=== PATIENT | female | born 1955 | race Caucasian/White ===

== ENCOUNTER → 2024-04-08 09:34 | Outpatient (REF) | payer MEDICARE, BC, SELFPAY | LOC: HWRAD 09:34 | PROVIDERS: ATTENDING PHYSICIAN Obstetrics & Gynecology Gynecology; FAMILY PHYSICIAN Internal Medicine | DX: Z12.31 Encounter for screening mammogram for malignant neoplasm of breast (principal); N95.0 Postmenopausal bleeding | CPT/HCPCS: 76830; 76856; 77063; 77067 ==

== ENCOUNTER 2025-01-15 22:22 | Inpatient (IN) | payer MEDICARE, BC, SELFPAY ==
[2025-01-15] VITALS (12 sets, daily range): BP systolic 159–218; BP diastolic 74–108
--- NOTE | 2025-01-15 19:56 | CON.NEURO ---
Consultation
Order
Date of Consultation: 01/15/25
Requesting Provider:
Reason for Consult: Stroke alert stroke alert
Called in: 19:32
Neurology Consultation Note.
HPI: This is a 69-year-old right-handed 'very anti-medicine'woman who presented to [facility] on with diplopia. According to the patient she developed an acute painless binocular vertical diplopia at
ER VS: 183/100, 79, 13, afebrile
PDMP:Alprazolam 1 Mg 120 tablets filled in on 01/01/2025, 11/24/2024, Phenobarbital 60 Mg 60 tablets filled in on 11/12/2024, 12/14/2024
CT head wo contrast-mild subcortical, deep, and periventricular white matter low-attenuation, compatible with changes of chronic small vessel ischemic disease
PMH: RRMS(declined therapy), history of right optic neuritis, MGUS?, GERD, IBS, XANDER, autonomic dysfunction, h/o ninth rib, left T12 and L1 transverse processes.
PSH: Bone and lymph node biopsy
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
FH: Mother�TIAs, strokes
All: Iodine, lidocaine, Motrin, prednisone, Compazine, tetracycline, epinephrine, codeine
ROS: Constitutional: Negative. Negative for chills, fever and unexpected weight change.
HENT: Negative for ear pain, hearing loss, tinnitus and trouble swallowing.
Eyes: Negative. Negative for photophobia, pain and visual disturbance.
Respiratory: Negative for cough, choking and shortness of breath.
Cardiovascular: Negative for chest pain, palpitations and leg swelling.
Gastrointestinal: Negative for abdominal pain and vomiting.
Endocrine: Negative. Negative for cold intolerance.
Genitourinary: Positive for urinary urgency and frequency
Musculoskeletal: Negative for back pain, gait problem, neck pain and neck stiffness.
Skin: Negative for rash.
Allergic/Immunologic: Negative. Negative for immunocompromised state.
Neurological: Positive for diplopia, chronic vertigo, imbalance
Psychiatric/Behavioral: Negative for behavioral problems, confusion and hallucinations.
NIH Stroke Scale
1A Level of Consciousness: 0/3
1B LOC Questions: 0/2
1C LOC Commands: 0/2
2 Best Gaze: 0/2
3 Visual: 0/3
4 Facial Palsy: 0/3
5A Motor Arm LEFT: 0/4
5B Motor Arm RIGHT: 0/4
6A Motor Leg LEFT: 0/4
6B Motor Leg RIGHT: 0/4
7 Limb Ataxia: 0/2
8 Sensory: 0/2
9 Best Language: 0/3
10 Dysarthria: 0/2
11 Extinction/Inattention: 0/2
Total NIHSS: 0
Assessment and Plan:
I. Acute binocular vertical diplopia. Differential diagnosis includes vascular versus demyelinating versus neuromuscular junction disorder. Not a candidate for IV TNK given low NIH stroke scale.
II. Hypertensive emergency
III. RRMS.
-Continue Telemetry monitoring
-Fall precautions
-Cautious lowering of BP by approximately 15 % during the first 24 hours is SBP >220 mmHg or diastolic blood pressure >120 mmHg
-Start ASA 81 mg QD and Plavix 75 mg QD for 21 days.
-Please check CBC, COMP, HbA1C, LDL, ESR, CRP, TFTs
-EKG
-Brain MRI with and without xander
-PT
-DVT prophylaxis.
- Plan discussed with patient's spouse present at bedside.
I personally reviewed all radiology and labs along with past medical records pertinent to current medical problems. Total time spent in patient care is 40 minutes.
Thank you for allowing us to participate in the care of this patient. We will continue to follow. Please do not hesitate to contact us with any questions or concerns.
Subjective/Objective
Subjective Data
Date of Service: January 15, 2025
Objective Data
Vital Signs
Temp Pulse Resp BP Pulse Ox
36.8 C 79 13 183/100 99
01/15/25 19:20 01/15/25 19:47 01/15/25 19:47 01/15/25 19:20 01/15/25 19:47
Patient Allergies
adhesive tape Allergy (Verified 05/22/20 11:52)
Unknown
albuterol Allergy (Verified 05/22/20 11:52)
tachy-daniela w/ syncopy
codeine Allergy (Verified 05/22/20 11:52)
Shortness of Breath
epinephrine Allergy (Verified 05/22/20 11:52)
High HR and low BP
Iodinated Contrast Media [Iodinated Contrast- Oral and IV Dye] Allergy (Verified 05/22/20 11:52)
Anaphylaxis
iodine Allergy (Verified 05/22/20 11:52)
Anaphylaxis
Latex, Natural Rubber Allergy (Verified 05/22/20 11:52)
Unknown
lidocaine Allergy (Verified 05/22/20 11:52)
Low BP and high HR
morphine Allergy (Verified 05/22/20 11:52)
Unknown
prednisone Allergy (Verified 05/22/20 11:52)
HR and BP issues with Solu-medrol
prochlorperazine [From Compazine] Allergy (Verified 05/22/20 11:52)
Unknown
prochlorperazine edisylate [From Compazine] Allergy (Verified 05/22/20 11:52)
Unknown
prochlorperazine maleate [From Compazine] Allergy (Verified 05/22/20 11:52)
Unknown
shellfish derived Allergy (Verified 05/22/20 11:52)
Anaphylaxis
Tetracyclines Allergy (Verified 05/22/20 11:52)
Unknown
steriods Allergy (Uncoded 05/22/20 11:52)
tachy-daniela
Medications
-
Home Medications
�Medication �Instructions �Recorded
meclizine 12.5 mg tablet 12.5 mg PO Q4H around the clock 04/30/16
ondansetron 4 mg disintegrating 4 mg PO Q8HPRN PRN for vertigo 04/30/16
tablet with valium
fluoxetine 20 mg capsule 40 mg (2 x 20 mg) PO DAILY 05/05/16
diazepam 5 mg tablet 5 mg PO Q8HPRN PRN vertigo 11/06/17
alprazolam 0.5 mg tablet 0.5 mg PO Q4H For MS, around the 01/02/18
clock
ranitidine HCl 150 mg tablet 150 mg PO QPM 01/02/18
(Zantac)
azithromycin 500 mg tablet 500 mg PO DAILY #7 tabs 01/04/18
(Zithromax)
cefuroxime axetil 500 mg tablet 500 mg PO BID #14 tabs 01/04/18
guaifenesin 100 mg/5 mL oral liquid 200 mg (10 mL) PO Q4HPRN PRN cough 01/04/18
pantoprazole 40 mg tablet,delayed 40 mg PO DAILY 01/04/18
release
prednisone 10 mg tablet 10 mg PO .TAPER #30 tabs 01/04/18
Vital Signs and Labs
-
Vital Signs and Labs:
Vital Signs
Temp Pulse Resp BP Pulse Ox
36.8 C 79 13 183/100 99
01/15/25 19:20 01/15/25 19:47 01/15/25 19:47 01/15/25 19:20 01/15/25 19:47
Home Medications
-
Home Medications
meclizine 12.5 mg tablet 12.5 mg PO Q4H around the clock 04/30/16
ondansetron 4 mg disintegrating tablet 4 mg PO Q8HPRN PRN for vertigo with valium 04/30/16
fluoxetine 20 mg capsule 40 mg (2 x 20 mg) PO DAILY 05/05/16
diazepam 5 mg tablet 5 mg PO Q8HPRN PRN vertigo 11/06/17
alprazolam 0.5 mg tablet 0.5 mg PO Q4H For MS, around the clock 01/02/18
ranitidine HCl 150 mg tablet (Zantac) 150 mg PO QPM 01/02/18
azithromycin 500 mg tablet (Zithromax) 500 mg PO DAILY #7 tabs 01/04/18
cefuroxime axetil 500 mg tablet 500 mg PO BID #14 tabs 01/04/18
guaifenesin 100 mg/5 mL oral liquid 200 mg (10 mL) PO Q4HPRN PRN cough 01/04/18
pantoprazole 40 mg tablet,delayed release 40 mg PO DAILY 01/04/18
prednisone 10 mg tablet 10 mg PO .TAPER #30 tabs 01/04/18
--- NOTE | 2025-01-15 20:10 | ED.GENMED ---
History of Present Illness
General
Chief Complaint: Visual Problem
Time Seen by Provider: 01/15/25 19:59
History of Present Illness
History of Present Illness:
Patient is a 69-year-old woman with history of multiple sclerosis presenting to the emergency department as a stroke alert. Patient last known normal was 6:15 PM. She was watching TV when she had sudden onset of vertical diplopia that is
binocular. She also noted a mild left-sided headache with associated nausea and photophobia. She does not have headaches. She has never had a headache because vision changes. She states her MS meds are usually balance problems. She is on
medications for it. No numbness tingling currently. No weakness. No speech deficit or changes when this occurred.
Past History
Past History
ED Past Medical History: Other (dysautonomia/POTS, GERD, IBS, MS) and Other (Immunoglobulin deficiency, unknown type, cellulitis)
ED Past Surgical History: Orthopedic and Other (Breast biopsy, lymph node biopsy)
Social History
Tobacco: Non-smoker
Alcohol: None
Drug: None
Personal:
Living: with family
Employment: Disabled (With MS)
Phy Exam
Physical Exam
Physical Exam:
GENERAL: in no acute distress
HEENT: normocephalic, extraocular movements intact, moist oral mucosa
NECK: normal inspection
RESPIRATORY: no respiratory distress, clear to auscultation bilaterally
CARDIOVASCULAR: regular rate and rhythm
ABDOMEN/: soft, non-distended, non-tender to palpation, no rebound or guarding
EXTREMITIES: non-tender, no edema/swelling
NEUROLOGIC: alert and oriented x 3, cranial nerves II-XII intact except for vertical diplopia, right upper extremity strength 5/5, left upper extremity strength 5/5, right lower extremity strength 5/5, left lower extremity strength 5/5, normal
sensation to light touch, normal [id number] and [id number], gait not tested formally
SKIN: warm
Scores
NIH Stroke Score
Level of Consciousness: 0 - Alert
LOC Questions: 0-Answers both correctly
LOC Commands: 0-Performs both correctly
Best Horizontal Gaze: 0-Normal
Visual Armenta: 0=Normal, no visual loss
Facial Palsy: 0=Normal, symmetrical
Motor - Right Arm: 0=No drift 10 seconds
Motor - Left Arm: 0=No drift 10 seconds
Motor - Right Le-No drift 5 seconds
Motor - Left Le-No drift 5 seconds
Limb Ataxia: 0-Absent
Sensation: 0-Normal
Best Language: 0-No aphasia
Dysarthria: 0-Normal
Extinction and Inattention: 0-No abnormality
Total Score:: 0
Course
Orders/Labs/Results
Orders:
Orders
01/15/25 19:02
CT HEAD STROKE ALERT W/o Cont Stat
Reason For Exam: double vision x 30 minutes.
01/15/25 20:10
Electrocardiogram (*1) Urgent
Reason for Study: TIA/Stroke
EKG- Treatment ONCE
01/15/25 20:49
Acetaminophen [Tylenol] 1,000 mg PO NOW STA
Diazepam [Valium] 5 mg PO NOW STA
01/15/25 20:59
Basic Metabolic Panel Urgent
Complete Blood Count/With Diff Urgent
Abnormal Lab Results
01/15/25
20:59
Monocytes % 10.8 H %
(1.7-9.3)
BUN 24 H mg/dl
(7-17)
01/15/25 20:59
01/15/25 20:59
Vital Signs
Initial and Last Documented VS:
Initial Vital Signs
Temp Pulse Resp BP Pulse Ox
98.3 F 86 18 183/100 98
01/15/25 19:20 01/15/25 19:20 01/15/25 19:20 01/15/25 19:20 01/15/25 19:20
Last Documented Vital Signs
Temp Pulse Resp BP Pulse Ox
98.3 F 67 18 159/96 96
01/15/25 19:20 01/15/25 21:41 01/15/25 21:41 01/15/25 21:41 01/15/25 21:41
MDM/Problems Addressed
Differential Diagnosis Includes:
Patient is a 69-year-old woman presenting to the emergency department as a stroke alert. On arrival patient is hypertensive. Exam does show binocular vertical diplopia no other visual field cuts or cranial nerve palsies that are obvious. No
obvious weakness. Concern for CVA versus MS flare versus metabolic derangement. Patient did get CT stroke stroke alert scan which was negative for any acute abnormality. Unfortunately patient does have an allergy to contrast so will not obtain
CTA. NIH is 0 the patient is not a TNK candidate. Could be a complex migraine. I did offer to treat with migraine cocktail however patient states that she has significant amount of allergies so she would just prefer Tylenol at this time. Patient
will need admission for further evaluation.
I did discuss the hypertension with neurology. Will allow permissive hypertension and treat for systolic greater than 220 or diastolic greater than 120. Will also give her her home Valium to see if that improves
On reevaluation blood pressures in the 150s. Discussed with hospitalist who accepted patient to their service
*Critical Care Note
Total Time (30-74mins, 75-104mins- exclusive of procedures): Not Applicable
ED Attending Note
-
Portions of this chart may have been created with voice recognition software.� Occasional wrong word or��sound alike� substitutions may have occurred due to the inherent limitations of voice recognition software.
Discharge Plan
Departure
Patient Disposition: Admit
Date of Disposition: 01/15/25
Time of Disposition: 21:44
Presentation/result/management discussed w/ accepting MD/DO: Hospitalist
Discharge Problem:
Double vision
Prescriptions:
No Action
meclizine 12.5 MG tablet
12.5 mg PO Q4H
Patient Comments:
01/02/18 per patient around the clock for veritgo and MS
ondansetron 4 MG tablet,disintegrating
4 mg PO BIDPRN PRN (Reason: for vertigo with valium )
diazepam 5 MG tablet
5 mg PO BIDPRN PRN (Reason: vertigo)
alprazolam [Xanax] 1 mg Tablet
0.5 mg PO Q4H
Patient Comments:
01/15/25: last filled 01/01/25 for 120 tabs over 30 days
acetaminophen [Tylenol Extra Strength] 500 mg Tablet
1,000 mg PO Q6HPRN PRN (Reason: mild pain/headache)
fluoxetine 20 mg Tablet
40 mg PO DAILY
Referrals:
Panda Mcfadden MD [Family Provider] -
Interventions
Interventions:
*Risk Screen - Suicide Last Done: 01/15/25 19:27
*General Assessment Last Done: 01/15/25 19:54
*Neglect/Abuse Screening Last Done: 01/15/25 19:27
*ED- Fall Risk Assessment Last Done: 01/15/25 19:54
*ED COVID-19 Vaccine History Last Done: 01/15/25 19:54
ED- Neurological Assessment Last Done: 01/15/25 19:54
ED-EENT Assessment Last Done: 01/15/25 19:54
ED Swallowing Screen Last Done: 01/15/25 20:22
Discharge Date and Time
Print Language: YI
[2025-01-15] MEDS: VALIUM 5 MG PO (20:59)
[2025-01-15] MEDS: TYLENOL 1000 MG PO (20:59)
[2025-01-15 21:12] LABS: % Basophils 0.9 % (0-2); % Eosinophils 3.2 % (0-6); % Immature Granulocytes 0.2 % (0-0.5); % Lymphocytes 35.2 % (20.5-51.1); % Monocytes 10.8 % (1.7-9.3); % Neutrophils 49.7 % (42.2-75.2); Absolute Basophils 0.1 10^3/uL (0-0.2); Absolute Eosinophils 0.2 10^3/uL (0-0.7); Absolute Monocytes 0.6 10^3/uL (0.1-0.6); Absolute Neutrophils 2.8 10^3/uL (1.4-6.5); Hematocrit 39.5 % (37.0-47.0); Hemoglobin 13.5 g/dL (12.0-16.0); Mean Corp Hgb Conc. 34.2 g/dL (33.0-37.0); Mean Corpuscular Hgb 30.5 pg (27.0-31.0); Mean Corpuscular Volume 89.4 fL (81.0-99.0); Nucleated Red Blood Cells % 0 %; Platelet Count 244 10^3/uL (130-400); Red Blood Cell Count 4.42 10^6/uL (4.20-5.40); White Blood Cell Count 5.7 10^3/uL (4.8-10.8)
[2025-01-15 21:25] LABS: Blood Urea Nitrogen 24 mg/dl (7-17); Calcium 9.2 mg/dl (8.4-10.2); Carbon Dioxide 25 mmol/L (22-30); Chloride 105 mmol/L (98-107); Glucose 96 mg/dl (70-99); Sodium 140 mmol/L (135-145); eGFR > 60.00
--- NOTE | 2025-01-15 22:18 | HPS.HSE ---
Family Physician
-
Family Physician: Panda Mcfadden MD
Chief Complaint
-
diplopia
History of Present Illness
69-year-old female past medical history of multiple sclerosis, asthmatic bronchitis, presenting with vertical double vision starting this evening. She was watching TV when she developed sudden onset of double vision with both eyes. She also
developed mild left-sided headache with nausea and photophobia. No numbness or tingling. No focal weakness. No speech deficits.
She has chronic vertigo from her multiple sclerosis for which she takes Xanax and meclizine every 4 hours.
Her mother had several strokes.
She drinks alcohol socially. Denies smoking.
Medical History
Past Medical History
Past Medical History: Reports Other (multiple sclerosis, asthmatic bronchitis)
Past Surgical History: Reports None
Social History
Tobacco: Non-smoker
Alcohol: Occasional
Drug: None
Family History
Family History: Not pertinent
Allergies / Home Medications
Allergies reflects when Allergies were last updated in [employer].
Home Medications with original date entered in [employer]
Allergy/Medication List:
Allergies
Allergy/AdvReac Type Severity Reaction Status Date / Time
adhesive tape Allergy Unknown Verified 05/22/20 11:52
albuterol Allergy tachy-daniela Verified 05/22/20 11:52
w/ syncopy
codeine Allergy Shortness Verified 05/22/20 11:52
of Breath
epinephrine Allergy High HR Verified 05/22/20 11:52
and low BP
Iodinated Contrast Media Allergy Anaphylaxis Verified 05/22/20 11:52
[Iodinated Contrast- Oral
and IV Dye]
iodine Allergy Anaphylaxis Verified 05/22/20 11:52
Latex, Natural Rubber Allergy Unknown Verified 05/22/20 11:52
lidocaine Allergy Low BP and Verified 05/22/20 11:52
high HR
morphine Allergy Unknown Verified 05/22/20 11:52
prednisone Allergy HR and BP Verified 05/22/20 11:52
issues
with
Solu-medrol
prochlorperazine Allergy Unknown Verified 05/22/20 11:52
[From Compazine]
prochlorperazine edisylate Allergy Unknown Verified 05/22/20 11:52
[From Compazine]
prochlorperazine maleate Allergy Unknown Verified 05/22/20 11:52
[From Compazine]
shellfish derived Allergy Anaphylaxis Verified 05/22/20 11:52
Tetracyclines Allergy Unknown Verified 05/22/20 11:52
steriods Allergy tachy-daniela Uncoded 05/22/20 11:52
Home Medications
meclizine 12.5 mg tablet 12.5 mg PO Q4H around the clock 04/30/16
ondansetron 4 mg disintegrating tablet 4 mg PO BIDPRN PRN for vertigo with valium 04/30/16
diazepam 5 mg tablet 5 mg PO BIDPRN PRN vertigo 11/06/17
acetaminophen 500 mg tablet (Tylenol Extra Strength) 1,000 mg PO Q6HPRN PRN mild pain/headache 01/15/25
alprazolam 1 mg tablet (Xanax) 0.5 mg PO Q4H 01/15/25
fluoxetine 20 mg tablet 40 mg PO DAILY 01/15/25
Review of Systems
-
History Source: Patient
A 12 point ROS was completed and negative except as noted: Yes
Constitutional: Reports No Symptoms
EENT: Reports No Symptoms
Respiratory: Reports No Symptoms
Cardiac: Reports No Symptoms
Abdomen/GI: Reports No Symptoms
: Reports No Symptoms
Musculoskeletal: Reports No Symptoms
Skin: Reports No Symptoms
Neurological: Reports See HPI
Endocrine: Reports No Symptoms
Hematologic/Lymphatic: Reports No Symptoms
Psych: Reports No Symptoms
Physical Exam
Vital Signs
Vital Signs
Temp Pulse Resp BP Pulse Ox
98.3 F 64 23 197/96 95
01/15/25 19:20 01/15/25 22:00 01/15/25 22:00 01/15/25 22:00 01/15/25 22:00
Physical Exam
General: Well Developed, Well Nourished and No Apparent Distress
HEENT: NormoCephalic, Moist mucous membranes and Atraumatic
Respiratory: Clear
Cardiac: S1/S2 and Regular Rhythm; No Murmur or Rub
GI: Soft, Non Tender, Non Distended and Normal Bowel Sounds; No Organomegaly
Rectal: Deferred by Provider
Musculoskeletal: No Clubbing, No Cyanosis and No Edema
Skin: No Rash
Neuro: Nonfocal/grossly intact
Laboratory Results
-
01/15/25 20:59
01/15/25 20:59
Data Reviewed
-
Lab Data: Labs Reviewed by me
Old Records: Reviewed
Impression/Plan
-
IMPRESSION:
PLAN:
# Diplopia likely secondary to multiple sclerosis flare versus less likely myasthenia gravis versus CVA
# History of multiple sclerosis with chronic vertigo
-CT head shows no acute abnormality
- Aspirin and Plavix started
- MRI brain with and without contrast
- Check inflammatory markers, TSH, A1c, lipid panel
- Continue Xanax and meclizine every 4 hours for chronic vertigo from multiple sclerosis
# Hypertensive urgency
# History of labile hypertension secondary to autonomic dysfunction from multiple sclerosis lesions
- Permissive hypertension up to 220 systolic
- Patient takes low-dose lisinopril if blood pressure goes too high, can give 2.5 mg lisinopril if needed
History of asthmatic bronchitis
Anxiety/depression
-Continue fluoxetine, diazepam, Xanax
Full code
DVT prophylaxis�SCDs
Regular diet
[2025-01-15] MEDS: LOW STRENGTH ASPIRIN 324 MG PO (22:27)
[2025-01-16] VITALS (7 sets, daily range): BP systolic 141–202; BP diastolic 79–97; BMI 33.9
[2025-01-16] MEDS: XANAX 0.5 MG PO ×6 (01:27→20:18)
[2025-01-16] MEDS: ANTIVERT 12.5 MG PO ×6 (01:27→20:18)
--- NOTE | 2025-01-16 01:30 | TRANSFER ---
Pt admitted from ED to room 418-2. Pt walked with no assistance from stretcher to bed. AAOx2. BP noted to be elevated. 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 Pt oriented to the room, call concepcion within reach.
--- NOTE | 2025-01-16 07:52 | W.PN.NEURO.1 ---
Today's Communication / Plan
-
.
Subjective/Objective
Subjective Data
Date of Service: January 16, 2025
Neurology follow-up note.
Ms. Johansen states that her diplopia has completely resolved in less than 1 hour. She admits to have a mild holocephalic headache with no new motor or sensory deficits.
Blood pressure continues to be elevated however significantly improved.
Brain MRI is pending
PMH: RRMS(declined therapy), history of right optic neuritis, MGUS?, GERD, IBS, XANDER, autonomic dysfunction, h/o ninth rib, left T12 and L1 transverse processes.
PSH: Bone and lymph node biopsy
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
FH: Mother�TIAs, strokes
All: Iodine, lidocaine, Motrin, prednisone, Compazine, tetracycline, epinephrine, codeine
ROS: Constitutional: Negative. Negative for chills, fever and unexpected weight change.
HENT: Negative for ear pain, hearing loss, tinnitus and trouble swallowing.
Eyes: Negative. Negative for photophobia, pain and visual disturbance.
Respiratory: Negative for cough, choking and shortness of breath.
Cardiovascular: Negative for chest pain, palpitations and leg swelling.
Gastrointestinal: Negative for abdominal pain and vomiting.
Endocrine: Negative. Negative for cold intolerance.
Genitourinary: Positive for urinary urgency and frequency
Musculoskeletal: Negative for back pain, gait problem, neck pain and neck stiffness.
Skin: Negative for rash.
Allergic/Immunologic: Negative. Negative for immunocompromised state.
Neurological: Positive for diplopia, chronic vertigo, imbalance
Psychiatric/Behavioral: Negative for behavioral problems, confusion and hallucinations.
General: Well developed. In no acute distress.
Cardio: Regular rate and rhythm without murmur. Extremities are without cyanosis or edema.
Neuro:
Mental Status: Alert, oriented to person, place, and date. Normal attention and recall. Good fund of knowledge. Follows complex requests across the midline. Comprehension, naming, and repetition intact. Anxious mood
Cranial Nerves: Unable to visualize optic discs due to insufficient dilatation. Pupils are equally round and reactive to light. EOMs full. Visual lin full to confrontation. No ptosis. No nystagmus. V1-V3 intact to light touch and pinprick
bilaterally, symmetric. Face symmetric. Normal hearing AU. The palate elevated well. SCMs and traps 5/5. Tongue midline. No dysarthria.
Motor: Normal bulk and tone. No pronator or arm drift. Strength 5/5 throughout. No clonus.
Reflexes: 2+ throughout the upper extremities and knees. Plantar responses flexor bilaterally.
Sensory: Normalvibration and JPS.
Coordination: No dysmetria or tremor.
Gait: deferred
Assessment and Plan:
I. TIA
II. Hypertensive emergency
III. RRMS.
-Continue Telemetry monitoring
-Continue DAPT for 3 weeks
-Please follow-up HbA1C, LDL, ESR, CRP, TFTs
-Brain MRI with and without xander
-PT
-DVT prophylaxis.
I personally reviewed all radiology and labs along with past medical records pertinent to current medical problems. Total time spent in patient care is 35 minutes.
Thank you for allowing us to participate in the care of this patient. We will continue to follow. Please do not hesitate to contact us with any questions or concerns.
Objective Data
Vital Signs
Temp Pulse Resp BP Pulse Ox
36.4 C 68 20 169/84 96
01/16/25 03:46 01/16/25 03:46 01/16/25 03:46 01/16/25 03:46 01/16/25 03:46
Sodium 140 mmol/L (135-145) 01/15/25 20:59
Potassium 4.0 mmol/L (3.5-5.1) 01/15/25 20:59
BUN 24 mg/dl (7-17) H 01/15/25 20:59
Glucose 96 mg/dl (70-99) 01/15/25 20:59
Calcium 9.2 mg/dl (8.4-10.2) 01/15/25 20:59
LDL Cholesterol, Calc Cancelled 01/16/25 00:49
Patient Allergies
adhesive tape Allergy (Verified 05/22/20 11:52)
Unknown
albuterol Allergy (Verified 05/22/20 11:52)
tachy-daniela w/ syncopy
codeine Allergy (Verified 05/22/20 11:52)
Shortness of Breath
epinephrine Allergy (Verified 05/22/20:52)
High HR and low BP
Iodinated Contrast Media [Iodinated Contrast- Oral and IV Dye] Allergy (Verified 05/22/20:52)
Anaphylaxis
iodine Allergy (Verified 05/22/20 11:52)
Anaphylaxis
Latex, Natural Rubber Allergy (Verified 05/22/20 11:52)
Unknown
lidocaine Allergy (Verified 05/22/20 11:52)
Low BP and high HR
morphine Allergy (Verified 05/22/20:52)
Unknown
prednisone Allergy (Verified 05/22/20:52)
HR and BP issues with Solu-medrol
prochlorperazine [From Compazine] Allergy (Verified 05/22/20 11:52)
Unknown
prochlorperazine edisylate [From Compazine] Allergy (Verified 05/22/20 11:52)
Unknown
prochlorperazine maleate [From Compazine] Allergy (Verified 05/22/20 11:52)
Unknown
shellfish derived Allergy (Verified 05/22/20:52)
Anaphylaxis
Tetracyclines Allergy (Verified 05/22/20 11:52)
Unknown
steriods Allergy (Uncoded 05/22/20 11:52)
tachy-daniela
Vital Signs and Labs
-
Vital Signs and Labs:
Vital Signs
Temp Pulse Resp BP Pulse Ox
36.4 C 77 19 163/79 95
01/16/25 07:45 01/16/25 07:45 01/16/25 07:45 01/16/25 07:45 01/16/25 07:45
Lab Results
01/16/25 08:09
01/16/25 08:09
Sodium 142 mmol/L (135-145) 01/16/25 08:09
Potassium 4.0 mmol/L (3.5-5.1) 01/16/25 08:09
BUN 20 mg/dl (7-17) H 01/16/25 08:09
Glucose 98 mg/dl (70-99) 01/16/25 08:09
Calcium 9.2 mg/dl (8.4-10.2) 01/16/25 08:09
LDL Cholesterol, Calc 145 mg/dl 01/16/25 08:09
Medications
-
Medications:
Generic Name Dose Route Start Last Admin
Trade Name Freq PRN Reason Stop Dose Admin
Acetaminophen 1,000 mg 01/16/25 00:49 01/16/25 08:15
Acetaminophen 500 Mg Tablet PO 02/13/25 00:48 1,000 mg
Q6HPRN PRN Administration
mild pain/headache
Alprazolam 0.5 mg 01/16/25 00:49 01/16/25 08:03
Alprazolam 0.5 Mg Tablet PO 02/13/25 00:48 0.5 mg
Q4 ENZO Administration
Aspirin 81 mg 01/16/25 08:00 01/16/25 08:03
Aspirin 81 Mg Chewable Tablet PO 02/13/25 07:59 81 mg
DAILY ENZO Administration
Clopidogrel Bisulfate 75 mg 01/16/25 08:00 01/16/25 09:11
Clopidogrel 75 Mg Tablet PO 02/13/25 07:59 75 mg
DAILY ENZO Administration
Diazepam 5 mg 01/16/25 00:49
Diazepam 5 Mg Tablet PO 02/13/25 00:48
BIDPRN PRN
vertigo
Fluoxetine HCl 40 mg 01/16/25 08:00 01/16/25 08:02
Fluoxetine 20 Mg Capsule PO 02/13/25 07:59 40 mg
DAILY ENZO Administration
Meclizine HCl 12.5 mg 01/16/25 00:49 01/16/25 08:02
Meclizine 12.5 Mg Tablet PO 02/13/25 00:48 12.5 mg
Q4 ENZO Administration
Ondansetron HCl 4 mg 01/16/25 00:49
Ondansetron 4 Mg (Orally-Disintegrating) Tablet PO 02/13/25 00:48
BIDPRN PRN
for vertigo with valium
Sodium Chloride 0 flush 01/15/25 23:00
Sodium Chloride 0.9% (Flush) Syringe IV 02/12/25 22:59
PER PROTOCOL ENZO
Home Medications
-
Home Medications
meclizine 12.5 mg tablet 12.5 mg PO Q4H around the clock 04/30/16
ondansetron 4 mg disintegrating tablet 4 mg PO BIDPRN PRN for vertigo with valium 04/30/16
diazepam 5 mg tablet 5 mg PO BIDPRN PRN vertigo 11/06/17
acetaminophen 500 mg tablet (Tylenol Extra Strength) 1,000 mg PO Q6HPRN PRN mild pain/headache 01/15/25
alprazolam 1 mg tablet (Xanax) 0.5 mg PO Q4H 01/15/25
fluoxetine 20 mg tablet 40 mg PO DAILY 01/15/25
[2025-01-16] MEDS: PROZAC 40 MG PO (08:02)
[2025-01-16] MEDS: LOW STRENGTH ASPIRIN 81 MG PO (08:03)
[2025-01-16] MEDS: TYLENOL 1000 MG PO ×3 (08:15→21:31)
[2025-01-16 08:18] LABS: Hemoglobin 13.8 g/dL (12.0-16.0); Mean Corp Hgb Conc. 33.7 g/dL (33.0-37.0); Mean Corpuscular Volume 89.1 fL (81.0-99.0); Platelet Count 227 10^3/uL (130-400); Red Cell Dist. Width 11.9 % (11.5-14.5); White Blood Cell Count 3.9 10^3/uL (4.8-10.8)
[2025-01-16 08:32] LABS: ALT (SGPT) 46 U/L (0-35); AST (SGOT) 27 U/L (14-36); Albumin 4.4 g/dl (3.5-5.0); Alkaline Phosphatase 83 U/L (38-126); Blood Urea Nitrogen 20 mg/dl (7-17); Calcium 9.2 mg/dl (8.4-10.2); Carbon Dioxide 27 mmol/L (22-30); Chloride 107 mmol/L (98-107); Estimated Creatinine Clearance 82 ml/min; Glucose 98 mg/dl (70-99); HDL Cholesterol 63 mg/dl; LDL Cholesterol, Calculated 145 mg/dl; Sodium 142 mmol/L (135-145); Total Bilirubin 1.4 mg/dl (0.2-1.3); Total Cholesterol 225 mg/dl (50-199); Total Protein 6.9 g/dl (6.3-8.2); Triglyceride 86 mg/dl (10-149); Very Low Density Lipoprotein 17 mg/dl (0-30); eGFR > 60.00
[2025-01-16 09:01] LABS: TSH Reflex To Free T4 2.48 uIU/ml (0.47-4.68)
[2025-01-16 09:04] LABS: TSH Reflex To Free T4 2.52 uIU/ml (0.47-4.68)
[2025-01-16 09:20] LABS: Erythrocyte Sed Rate 2 mm/hour (0-20)
[2025-01-16 10:33] LABS: Glycohemoglobin (HgbA1c) 5.1 % (4.0-5.6)
--- NOTE | 2025-01-16 12:00 | W.PN.HOSP.TC ---
Addendum entered and electronically signed by Hi Estrada MD 01/16/25 15:46:
#HTN urgency
slow BP control as per neurology with Hx of labile BP 2/2 MS
Original Note:
Today's Communication/Plan
-
See PN
Assessment / Plan
Assessment / Plan
69yo F with PMHx of MS, chronic nistagmus, concern for MM with multiple spinal lesions followed by Oncology in [facility], muiltiple allergies came with acute onset vertical diplopia that resolved without residual, managed for CTA/TIA, MS flare vs
miasthenia
A/P:
#Diplopia with chronic horizontal and vertical nistagmus
#MS, chronic
MRI brain
Neurology follows
Telemetry without clinically significant arrhythmia
Head CT without acute intracranial abnormality
EKG without arrhtyhmia
TSH, ESR, CRP, HgbA1c WNL
LDL 145
COnt DAPT and statin
#Mild bilirubinemia
#mild ALT elevation
no abd pain
check hepatitis panel
LDH, direct bili and retics
#Mild leukopenia
#mild monocytosis
no respiratory symptoms
recent vral infection?
outpatient CBC in 1-2 weeks with PCP
#Concern for MM
continue to follow with existent oncologist
DVT ppx on SCDs
Full code
I have spent at least 55min reviewing hcart, test results, communication with consultants and preoviding direct patient care
Anticipated Discharge: 24 - 48 hours
Subjective/Interval History
-
Date of Service: January 16, 2025
Objective Data
-
Labs:
Laboratory Results
01/16/25 01/16/25
06:00 08:09
WBC Cancelled 3.9 L
Hgb Cancelled 13.8
Hct Cancelled 41.0
Plt Count Cancelled 227
Sodium 142
Potassium 4.0
Chloride 107
Carbon Dioxide 27
BUN 20 H
Creatinine 0.8
Glucose 98
Calcium 9.2
Total Bilirubin 1.4 H
AST 27
ALT 46 H
Alkaline Phosphatase 83
Vital Signs:
Vital Signs
Temp Pulse Resp BP Pulse Ox
97.6 F 77 19 163/79 95
01/16/25 07:45 01/16/25 07:45 01/16/25 07:45 01/16/25 07:45 01/16/25 07:45
Review of Systems
-
History Source: Patient
All other systems: Reviewed and negative
Physical Exam
-
General: No Apparent Distress
HEENT: Other (horizontal and vertical nystagmus, chronic)
Respiratory: Clear to Auscultation
Cardiac: Regular Rhythm
GI: Soft, Nontender and Nondistended
Musculoskeletal: No Clubbing, No Cyanosis and No Edema
Neuro: Awake, Alert, Oriented and AO x 3
Psych: Calm
[2025-01-16 12:44] LABS: Direct Bilirubin 0.3 mg/dl (0.0-0.4); LDH 170 U/L (120-246)
[2025-01-16 12:53] LABS: Reticulocyte Count 1.8 % (0.4-2.8)
--- NOTE | 2025-01-16 18:22 | PTCARENOTE ---
Patient refusing Plavix and Lipitor, stating she is unwilling to take them due to possible allergies. Education provided by nurse and neurologist, patient still refused at least until MRI results.
[2025-01-17] MEDS: ANTIVERT 12.5 MG PO ×6 (00:49→20:45)
[2025-01-17] MEDS: XANAX 0.5 MG PO ×6 (00:49→20:46)
[2025-01-17 02:48] VITALS: BP 184/90
[2025-01-17 07:00] VITALS: BP 169/84
[2025-01-17 07:47] LABS: % Basophils 1.4 % (0-2); % Eosinophils 4.9 % (0-6); % Immature Granulocytes 0.3 % (0-0.5); % Lymphocytes 41.1 % (20.5-51.1); % Monocytes 9.9 % (1.7-9.3); % Neutrophils 42.4 % (42.2-75.2); Absolute Basophils 0.1 10^3/uL (0-0.2); Absolute Eosinophils 0.2 10^3/uL (0-0.7); Absolute Lymphocytes 1.5 10^3/uL (1.2-3.4); Absolute Monocytes 0.4 10^3/uL (0.1-0.6); Absolute Neutrophils 1.6 10^3/uL (1.4-6.5); Hematocrit 39.4 % (37.0-47.0); Hemoglobin 13.2 g/dL (12.0-16.0); Mean Corp Hgb Conc. 33.5 g/dL (33.0-37.0); Mean Corpuscular Volume 89.5 fL (81.0-99.0); Mean Platelet Volume 9.1 fL (7.4-10.4); Nucleated Red Blood Cells % 0 %; Platelet Count 238 10^3/uL (130-400); Red Cell Dist. Width 11.9 % (11.5-14.5); White Blood Cell Count 3.7 10^3/uL (4.8-10.8)
[2025-01-17] MEDS: LOW STRENGTH ASPIRIN 81 MG PO (08:09)
[2025-01-17] MEDS: PROZAC 40 MG PO (08:09)
[2025-01-17 08:18] LABS: ALT (SGPT) 42 U/L (0-35); AST (SGOT) 24 U/L (14-36); Albumin 3.8 g/dl (3.5-5.0); Alkaline Phosphatase 75 U/L (38-126); Blood Urea Nitrogen 16 mg/dl (7-17); Calcium 9.5 mg/dl (8.4-10.2); Carbon Dioxide 25 mmol/L (22-30); Chloride 108 mmol/L (98-107); Estimated Creatinine Clearance 82 ml/min; Glucose 102 mg/dl (70-99); Potassium 4.2 mmol/L (3.5-5.1); Sodium 141 mmol/L (135-145); Total Protein 6.3 g/dl (6.3-8.2); eGFR > 60.00
[2025-01-17 11:00] VITALS: BP 165/95
--- NOTE | 2025-01-17 11:04 | W.PN.HOSP.TC ---
Today's Communication/Plan
-
pending neurology follow up
Assessment / Plan
Assessment / Plan
69yo F with PMHx of MS, chronic nistagmus, concern for MM with multiple spinal lesions followed by Oncology in [facility], muiltiple allergies came with acute onset vertical diplopia that resolved without residual, managed for CTA/TIA, MS flare vs
myasthenia. No recurrence of the symptoms during hospital stay. Mild leukopenia to be followed with PCP - repeated CBC advised in 1 week. Possible asymptomatic viral disease. ALso recommended check hepatitis panel as outpatient
A/P:
#Diplopia with chronic horizontal and vertical nystagmus
#MS, chronic
MRI brain: Small to moderate volume leukoaraiosis. Possible considerations include demyelination, gliosis, chronic microvascular white matter ischemic disease, Lyme disease, vasculitis, and migraine headaches
Neurology follows: court recording monitor advised, as per communication with patient and Cardiology - cannot be placed until Sun, however patients will have spinal Sx on Sun morning, so patient does not want to stay for that, will follow as
outpatient
Telemetry without clinically significant arrhythmia
Head CT without acute intracranial abnormality
EKG without arrhythmia
TSH, ESR, CRP, HgbA1c WNL
LDL 145
COnt DAPT and statin
#Mild transient indirect bilirubinemia - resolved
#Gilbert syndrome
#mild ALT elevation - improving
no abd pain
Recent asymptomatic viral infection?
hepatitis C neg as of 2018 - repeat hepatitis panes with PCP
LDH, and retics WNL
#Mild leukopenia
#mild monocytosis
no respiratory symptoms
recent vral infection?
outpatient CBC in 1-2 weeks with PCP
COVID-19 and Influenza PCR neg
#Concern for MM
continue to follow with existent oncologist
DVT ppx on SCDs
Full code
I have spent at least 35min reviewing chart, test results, communication with consultants and preoviding direct patient care
Anticipated Discharge: Within 24 hours
Subjective/Interval History
-
Date of Service: January 17, 2025
Objective Data
-
Labs:
Laboratory Results
01/17/25
07:24
WBC 3.7 L
Hgb 13.2
Hct 39.4
Plt Count 238
Sodium 141
Potassium 4.2
Chloride 108 H
Carbon Dioxide 25
BUN 16
Creatinine 0.8
Glucose 102 H
Calcium 9.5
Total Bilirubin 1.0
AST 24
ALT 42 H
Alkaline Phosphatase 75
Vital Signs:
Vital Signs
Temp Pulse Resp BP Pulse Ox
98.2 F 63 20 169/84 95
01/17/25 07:00 01/17/25 07:00 01/17/25 07:00 01/17/25 07:00 01/17/25 07:00
I&O
01/16/25 01/17/25 01/18/25
06:59 06:59 06:59
Intake Total 1320 / 1320
Balance 1320 / 1320
--- NOTE | 2025-01-17 11:35 | W.PN.NEURO.1 ---
Today's Communication / Plan
-
.
Subjective/Objective
Subjective Data
Date of Service: January 17, 2025
Neurology follow-up note.
Ms. Johansen reports no complaints. No recurrent episodes of diplopia. She continues to be hypertensive up to 169/84.
Brain MRI wo xander-showed no acute infarcts and chronic periventricular increased signal intensity on T2 and FLAIR as well as the courtney.
LDL�145, hemoglobin A1c�5.1,, normal ESR, CRP
PMH: RRMS(declined therapy), history of right optic neuritis, MGUS?, GERD, IBS, XANDER, autonomic dysfunction, h/o ninth rib, left T12 and L1 transverse processes.
PSH: Bone and lymph node biopsy
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
FH: Mother�TIAs, strokes
All: Iodine, lidocaine, Motrin, prednisone, Compazine, tetracycline, epinephrine, codeine
ROS: Constitutional: Negative. Negative for chills, fever and unexpected weight change.
HENT: Negative for ear pain, hearing loss, tinnitus and trouble swallowing.
Eyes: Negative. Negative for photophobia, pain and visual disturbance.
Respiratory: Negative for cough, choking and shortness of breath.
Cardiovascular: Negative for chest pain, palpitations and leg swelling.
Gastrointestinal: Negative for abdominal pain and vomiting.
Endocrine: Negative. Negative for cold intolerance.
Genitourinary: Positive for urinary urgency and frequency
Musculoskeletal: Negative for back pain, gait problem, neck pain and neck stiffness.
Skin: Negative for rash.
Allergic/Immunologic: Negative. Negative for immunocompromised state.
Neurological: Positive for diplopia, chronic vertigo, imbalance
Psychiatric/Behavioral: Negative for behavioral problems, confusion and hallucinations.
General: Well developed. In no acute distress.
Cardio: Regular rate and rhythm without murmur. Extremities are without cyanosis or edema.
Neuro:
Mental Status: Alert, oriented to person, place, and date. Normal attention and recall. Good fund of knowledge. Follows complex requests across the midline. Comprehension, naming, and repetition intact. Anxious mood
Cranial Nerves: Unable to visualize optic discs due to insufficient dilatation. Pupils are equally round and reactive to light. EOMs full. Visual lin full to confrontation. No ptosis. No nystagmus. V1-V3 intact to light touch and pinprick
bilaterally, symmetric. Face symmetric. Normal hearing AU. The palate elevated well. SCMs and traps 5/5. Tongue midline. No dysarthria.
Motor: Normal bulk and tone. No pronator or arm drift. Strength 5/5 throughout. No clonus.
Reflexes: 2+ throughout the upper extremities and knees. Plantar responses flexor bilaterally.
Sensory: Normal vibration and JPS.
Coordination: No dysmetria or tremor.
Gait: deferred
Assessment and Plan:
I. TIA.
II. RRMS.
III. Multiple myeloma?
-Continue Telemetry monitoring
-Blood pressure goal�normotension
-Continue DAPT for 3 weeks and aspirin 81 mg lifelong
- Lipitor 40 mg nightly
- TTE, Holter monitoring
- DVT prophylaxis.
- Outpatient neurology follow-up
- Please recall neurology services any questions or concerns
I personally reviewed all radiology and labs along with past medical records pertinent to current medical problems. Total time spent in patient care is 35 minutes.
Thank you for allowing us to participate in the care of this patient. Please do not hesitate to contact us with any questions or concerns.
Objective Data
Vital Signs
Temp Pulse Resp BP Pulse Ox
36.8 C 63 20 169/84 95
01/17/25 07:00 01/17/25 07:00 01/17/25 07:00 01/17/25 07:00 01/17/25 07:00
Lab Results
01/17/25 07:24
01/17/25 07:24
Sodium 141 mmol/L (135-145) 01/17/25 07:24
Potassium 4.2 mmol/L (3.5-5.1) 01/17/25 07:24
BUN 16 mg/dl (7-17) 01/17/25 07:24
Glucose 102 mg/dl (70-99) H 01/17/25 07:24
Calcium 9.5 mg/dl (8.4-10.2) 01/17/25 07:24
LDL Cholesterol, Calc 145 mg/dl 01/16/25 08:09
Patient Allergies
adhesive tape Allergy (Verified 05/22/20 11:52)
Unknown
albuterol Allergy (Verified 05/22/20:52)
tachy-daniela w/ syncopy
codeine Allergy (Verified 05/22/20 11:52)
Shortness of Breath
epinephrine Allergy (Verified 05/22/20:52)
High HR and low BP
Iodinated Contrast Media [Iodinated Contrast- Oral and IV Dye] Allergy (Verified 05/22/20 11:52)
Anaphylaxis
iodine Allergy (Verified 05/22/20:52)
Anaphylaxis
Latex, Natural Rubber Allergy (Verified 05/22/20:52)
Unknown
lidocaine Allergy (Verified 05/22/20:52)
Low BP and high HR
morphine Allergy (Verified 05/22/20 11:52)
Unknown
prednisone Allergy (Verified 05/22/20 11:52)
HR and BP issues with Solu-medrol
prochlorperazine [From Compazine] Allergy (Verified 05/22/20 11:52)
Unknown
prochlorperazine edisylate [From Compazine] Allergy (Verified 05/22/20:52)
Unknown
prochlorperazine maleate [From Compazine] Allergy (Verified 05/22/20 11:52)
Unknown
shellfish derived Allergy (Verified 05/22/20 11:52)
Anaphylaxis
Tetracyclines Allergy (Verified 05/22/20 11:52)
Unknown
steriods Allergy (Uncoded 05/22/20 11:52)
tachy-daniela
Vital Signs and Labs
-
Vital Signs and Labs:
Vital Signs
Temp Pulse Resp BP Pulse Ox
36.8 C 63 20 169/84 95
01/17/25 07:00 01/17/25 07:00 01/17/25 07:00 01/17/25 07:00 01/17/25 07:00
Lab Results
01/17/25 07:24
01/17/25 07:24
Sodium 141 mmol/L (135-145) 01/17/25 07:24
Potassium 4.2 mmol/L (3.5-5.1) 01/17/25 07:24
BUN 16 mg/dl (7-17) 01/17/25 07:24
Glucose 102 mg/dl (70-99) H 01/17/25 07:24
Calcium 9.5 mg/dl (8.4-10.2) 01/17/25 07:24
LDL Cholesterol, Calc 145 mg/dl 01/16/25 08:09
Medications
-
Medications:
Generic Name Dose Route Start Last Admin
Trade Name Freq PRN Reason Stop Dose Admin
Acetaminophen 1,000 mg 01/16/25 00:49 01/16/25 21:31
Acetaminophen 500 Mg Tablet PO 02/13/25 00:48 1,000 mg
Q6HPRN PRN Administration
mild pain/headache
Alprazolam 0.5 mg 01/16/25 00:49 01/17/25 08:09
Alprazolam 0.5 Mg Tablet PO 02/13/25 00:48 0.5 mg
Q4 ENZO Administration
Aspirin 81 mg 01/16/25 08:00 01/17/25 08:09
Aspirin 81 Mg Chewable Tablet PO 02/13/25 07:59 81 mg
DAILY ENZO Administration
Atorvastatin Calcium 40 mg 01/16/25 18:00 01/16/25 18:22
Atorvastatin (Lipitor) 40 Mg Tablet PO 02/13/25 17:59 Not Given
QPM ENZO
Clopidogrel Bisulfate 75 mg 01/16/25 08:00 01/17/25 08:14
Clopidogrel 75 Mg Tablet PO 02/13/25 07:59 Not Given
DAILY ENZO
Diazepam 5 mg 01/16/25 00:49
Diazepam 5 Mg Tablet PO 02/13/25 00:48
BIDPRN PRN
vertigo
Fluoxetine HCl 40 mg 01/16/25 08:00 01/17/25 08:09
Fluoxetine 20 Mg Capsule PO 02/13/25 07:59 40 mg
DAILY ENZO Administration
Meclizine HCl 12.5 mg 01/16/25 00:49 01/17/25 08:09
Meclizine 12.5 Mg Tablet PO 02/13/25 00:48 12.5 mg
Q4 ENZO Administration
Ondansetron HCl 4 mg 01/16/25 00:49
Ondansetron 4 Mg (Orally-Disintegrating) Tablet PO 02/13/25 00:48
BIDPRN PRN
for vertigo with valium
Sodium Chloride 0 flush 01/15/25 23:00
Sodium Chloride 0.9% (Flush) Syringe IV 02/12/25 22:59
PER PROTOCOL ENZO
Home Medications
-
Home Medications
meclizine 12.5 mg tablet 12.5 mg PO Q4H Vertigo 04/30/16
ondansetron 4 mg disintegrating tablet 4 mg PO BIDPRN PRN for vertigo with valium 04/30/16
diazepam 5 mg tablet 5 mg PO BIDPRN PRN vertigo 11/06/17
acetaminophen 500 mg tablet (Tylenol Extra Strength) 1,000 mg PO Q6HPRN PRN mild pain/headache 01/15/25
alprazolam 1 mg tablet (Xanax) 0.5 mg PO Q4H Mental Health/Anxiety 01/15/25
fluoxetine 20 mg tablet 40 mg PO DAILY Depression 01/15/25
[2025-01-17 15:00] VITALS: BP 171/92
[2025-01-17] MEDS: TYLENOL 1000 MG PO (15:45)
--- NOTE | 2025-01-17 17:50 | CON.CAR ---
Consultation
Consultation Request
Date/Time Consultation Requested: 01/17/25 at 1409
Date/Time Consultation Performed: 01/17/25 at 1600
Requesting Provider: Hi Estrada MD
Performing Provider: Boaz Ma MD
Reason for Consultation: TIA
Medical History
-
Chief Complaint: TIA
History of Present Illness:
Bouchra Johansen is a 69yo F with PMHx of hypertension, hyperlipidemia, MS, chronic nystagmus, concern for MM with multiple spinal lesions followed by Oncology in [facility], multiple allergies came with acute onset vertical diplopia that resolved
spontaneously, concerning for TIA vs MS flare vs myasthenia. Cardiology is consulted for consideration of ILR implantation for possible TIA. In talking with the patient, it sounds like nothing like this is ever happened before. She was watching
television when she had acute onset of vertical diplopia for which she presented to the ER. It resolved spontaneously. Brain MRI showed no acute infarct.
Past Medical History
Past Medical History: Other (As above)
Social History
Tobacco: Non-Smoker
Alcohol: Occasional
Personal:
Living: With Family
Employment: Employed
Family History
Family History: Reviewed & Not Pertinent
Allergies / Home Medications
Allergy/AdvReac Type Severity Reaction Status Date / Time
adhesive tape Allergy Unknown Verified 05/22/20 11:52
albuterol Allergy tachy-daniela Verified 05/22/20 11:52
w/ syncopy
codeine Allergy Shortness Verified 05/22/20 11:52
of Breath
epinephrine Allergy High HR Verified 05/22/20 11:52
and low BP
Iodinated Contrast Media Allergy Anaphylaxis Verified 05/22/20 11:52
[Iodinated Contrast- Oral
and IV Dye]
iodine Allergy Anaphylaxis Verified 05/22/20 11:52
Latex, Natural Rubber Allergy Unknown Verified 05/22/20 11:52
lidocaine Allergy Low BP and Verified 05/22/20 11:52
high HR
morphine Allergy Unknown Verified 05/22/20 11:52
prednisone Allergy HR and BP Verified 05/22/20 11:52
issues
with
Solu-medrol
prochlorperazine Allergy Unknown Verified 05/22/20 11:52
[From Compazine]
prochlorperazine edisylate Allergy Unknown Verified 05/22/20 11:52
[From Compazine]
prochlorperazine maleate Allergy Unknown Verified 05/22/20 11:52
[From Compazine]
shellfish derived Allergy Anaphylaxis Verified 05/22/20 11:52
Tetracyclines Allergy Unknown Verified 05/22/20 11:52
steriods Allergy tachy-daniela Uncoded 05/22/20 11:52
�Medication �Instructions �Recorded �Confirmed �Type
meclizine 12.5 mg tablet 12.5 mg PO Q4H Vertigo 04/30/16 01/15/25 History
ondansetron 4 mg disintegrating 4 mg PO BIDPRN PRN for vertigo 04/30/16 01/15/25 History
tablet with valium
diazepam 5 mg tablet 5 mg PO BIDPRN PRN vertigo 11/06/17 01/15/25 History
acetaminophen 500 mg tablet 1,000 mg PO Q6HPRN PRN mild 01/15/25 01/15/25 History
(Tylenol Extra Strength) pain/headache
alprazolam 1 mg tablet (Xanax) 0.5 mg PO Q4H Mental Health/Anxiety 01/15/25 01/15/25 History
fluoxetine 20 mg tablet 40 mg PO DAILY Depression 01/15/25 01/15/25 History
Review of Systems
-
All other systems: Negative unless noted
Physical Exam
Vital Signs
Temp Pulse Resp BP Pulse Ox
97.9 F 83 20 171/92 95
01/17/25 15:00 01/17/25 15:00 01/17/25 15:00 01/17/25 15:00 01/17/25 15:00
Lab Results
01/17/25 07:24
01/17/25 07:24
Physical Exam
General: Well Developed and Well Nourished
HEENT: Normocephalic and Anicteric
Respiratory: Clear
Cardiac: S1/S2 and Regular Rhythm
Neuro: AO x 3
Impression / Plan
-
Bouchra Johansen is a 69yo F with PMHx of hypertension, hyperlipidemia, MS, chronic nystagmus, concern for MM with multiple spinal lesions followed by Oncology in [facility], multiple allergies came with acute onset vertical diplopia that resolved
spontaneously, concerning for TIA vs MS flare vs myasthenia. Cardiology is consulted for consideration of ILR implantation for possible TIA.
Vertical diplopia episode
-Per primary team and neurology notes, it seems that the differential is TIA versus MS flare versus myasthenia gravis. Brain MRI negative for stroke
-It is reasonable to have long-term monitoring for arrhythmia with ILR
-Due to scheduling issues, ILR would not be able to be implanted until Sunday. Patient's is having surgery that day and she would like to go home and return for ILR implantation at a later date.
-I will have our office set her up for a 30-day ambulatory monitor which she can get this week
-ILR as an outpatient if nothing is seen on 30-day monitor
-TTE with bubble study as an outpatient to rule out PFO
-Continue DAPT and atorvastatin 40 mg daily
Hypertension
-No home meds listed. She is hypertensive here.
Hyperlipidemia
-Total cholesterol 225, LDL 145
-Continue statin
Data Reviewed
-
EKG: Tracing Personally Visualized and interpreted and Discussed with Patient
CT Scan: Report Reviewed by me
MRI: Report Reviewed by me and Discussed with Patient
Labs: Labs Reviewed by me and Discussed with Patient
[2025-01-17 19:47] VITALS: BP 180/91
[2025-01-17 23:02] VITALS: BP 163/72
[2025-01-18] MEDS: ANTIVERT 12.5 MG PO ×4 (00:37→11:21)
[2025-01-18] MEDS: XANAX 0.5 MG PO ×4 (00:37→11:21)
[2025-01-18 03:31] VITALS: BP 173/82
[2025-01-18 07:00] VITALS: BP 178/95
[2025-01-18 07:23] LABS: % Basophils 1.1 % (0-2); % Eosinophils 4.1 % (0-6); % Immature Granulocytes 0.2 % (0-0.5); % Lymphocytes 38.6 % (20.5-51.1); Absolute Basophils 0.1 10^3/uL (0-0.2); Absolute Eosinophils 0.2 10^3/uL (0-0.7); Absolute Lymphocytes 1.7 10^3/uL (1.2-3.4); Absolute Monocytes 0.4 10^3/uL (0.1-0.6); Hematocrit 40.3 % (37.0-47.0); Hemoglobin 13.6 g/dL (12.0-16.0); Mean Corp Hgb Conc. 33.7 g/dL (33.0-37.0); Mean Corpuscular Hgb 30.1 pg (27.0-31.0); Mean Corpuscular Volume 89.2 fL (81.0-99.0); Mean Platelet Volume 8.9 fL (7.4-10.4); Nucleated Red Blood Cells % 0 %; Platelet Count 238 10^3/uL (130-400); Red Blood Cell Count 4.52 10^6/uL (4.20-5.40); Red Cell Dist. Width 11.9 % (11.5-14.5); White Blood Cell Count 4.4 10^3/uL (4.8-10.8)
[2025-01-18] MEDS: LOW STRENGTH ASPIRIN 81 MG PO (08:02)
[2025-01-18] MEDS: PROZAC 40 MG PO (08:03)
[2025-01-18 11:00] VITALS: BP 171/85
--- NOTE | 2025-01-18 12:16 | W.PN.HOSP.TC ---
Today's Communication/Plan
-
dc
Assessment / Plan
Assessment / Plan
69yo F with PMHx of MS, chronic nistagmus, concern for MM with multiple spinal lesions followed by Oncology in [facility], muiltiple allergies came with acute onset vertical diplopia that resolved without residual, managed for CTA/TIA, MS flare vs
myasthenia. No recurrence of the symptoms during hospital stay. Mild leukopenia to be followed with PCP - repeated CBC advised in 1 week. Possible asymptomatic viral disease. ALso recommended check hepatitis panel as outpatient. Outpatient Echo and
monitoring manager - arranged by cardiology. Remained asymptomatic on the day of discharge. medically stable for d/c home
A/P:
#Diplopia with chronic horizontal and vertical nystagmus
#MS, chronic
MRI brain: Small to moderate volume leukoaraiosis. Possible considerations include demyelination, gliosis, chronic microvascular white matter ischemic disease, Lyme disease, vasculitis, and migraine headaches
Neurology follows: monitoring manager advised, as per communication with patient and Cardiology - cannot be placed until Sun, however patients will have spinal Sx on Sun morning, so patient does not want to stay for that, will follow as
outpatient
Telemetry without clinically significant arrhythmia
Head CT without acute intracranial abnormality
EKG without arrhythmia
TSH, ESR, CRP, HgbA1c WNL
LDL 145
COnt DAPT (plavix for 3 weeks) and statin
Outpatient Echo and monitoring manager - arranged by cardiology
#Mild transient indirect bilirubinemia - resolved
#Gilbert syndrome
#mild ALT elevation - improving
no abd pain
Recent asymptomatic viral infection?
hepatitis C neg as of 2018 - repeat hepatitis panes with PCP
LDH, and retics WNL
#Mild leukopenia
#mild monocytosis
no respiratory symptoms
recent vral infection?
outpatient CBC in 1-2 weeks with PCP
COVID-19 and Influenza PCR neg
#Concern for MM
continue to follow with existent oncologist
DVT ppx on SCDs
Full code
I have spent at least 35min reviewing chart, test results, communication with consultants and preoviding direct patient care
Anticipated Discharge: Today
Subjective/Interval History
-
Date of Service: January 18, 2025
Objective Data
-
Labs:
Laboratory Results
01/18/25
07:11
WBC 4.4 L
Hgb 13.6
Hct 40.3
Plt Count 238
Vital Signs:
Vital Signs
Temp Pulse Resp BP Pulse Ox
98.5 F 84 21 171/85 96
01/18/25 11:00 01/18/25 11:00 01/18/25 11:00 01/18/25 11:00 01/18/25 11:00
I&O
01/17/25 01/18/25 01/19/25
06:59 06:59 06:59
Intake Total 1320 / 1320
Balance 1320 / 1320
Review of Systems
-
History Source: Patient
All other systems: Reviewed and negative
Physical Exam
-
General: No Apparent Distress
Neuro: Awake, Alert, Oriented and AO x 3
Psych: Calm
--- NOTE | 2025-01-18 12:22 | W.DCSUMMARY ---
Discharge Summary
Discharge Data
Date of Admission: 01/15/25
Date of Discharge: 01/18/25
-
Pending Results: No
Hospital Course
69yo F with PMHx of MS, chronic nistagmus, concern for MM with multiple spinal lesions followed by Oncology in [facility], muiltiple allergies came with acute onset vertical diplopia that resolved without residual, managed for CTA/TIA, MS flare vs
myasthenia. No recurrence of the symptoms during hospital stay. Mild leukopenia to be followed with PCP - repeated CBC advised in 1 week. Possible asymptomatic viral disease. ALso recommended check hepatitis panel as outpatient. Outpatient Echo and
manager cardiac - arranged by cardiology. Remained asymptomatic on the day of discharge. medically stable for d/c home
I have spent at least 35min reviewing chart, test results, communication with consultants and preoviding direct patient care
Patient was managed for:
#Diplopia with chronic horizontal and vertical nystagmus
#MS, chronic
#Mild transient indirect bilirubinemia - resolved
#Gilbert syndrome
#mild ALT elevation - improving
#Mild leukopenia
#mild monocytosis
#Concern for MM
Discharge Plan
-
Patient Disposition: Home (Routine Discharge)
Discharge Diagnosis/Procedures: diplopia
Diet: Low Cholesterol and Low Sodium
Activity: No restrictions
Driving Restrictions: As prior to admission
Blood Work: CBC in 1-2 weeks with PCP
Referrals:
Boaz Ma MD [Active] - in one to two days
Panda Mcfadden MD [Family Provider] - in one to two weeks (check chronic hepatitis panel, consider US liver)
Additional Discharge Medication Instructions: Stop Plavix in 19 days
Prescriptions:
New
atorvastatin 40 mg Tablet
40 mg PO QPM Qty: 30 0RF
clopidogrel 75 mg Tablet
75 mg PO DAILY Qty: 19 0RF
aspirin 81 mg Tablet,Chewable
81 mg PO DAILY Qty: 30 0RF
Continued
meclizine 12.5 MG tablet
12.5 mg PO Q4H
Patient Comments:
01/02/18 per patient around the clock for veritgo and MS
ondansetron 4 MG tablet,disintegrating
4 mg PO BIDPRN PRN (Reason: for vertigo with valium )
diazepam 5 MG tablet
5 mg PO BIDPRN PRN (Reason: vertigo)
alprazolam [Xanax] 1 mg Tablet
0.5 mg PO Q4H
Patient Comments:
01/15/25: last filled 01/01/25 for 120 tabs over 30 days
acetaminophen [Tylenol Extra Strength] 500 mg Tablet
1,000 mg PO Q6HPRN PRN (Reason: mild pain/headache)
fluoxetine 20 mg Tablet
40 mg PO DAILY
Discharge Orders:
Discharge Patient (As Directed); Ordered 01/18/25
Ordered By: Hi Estrada
Discharge Date and Time
Print Language: BELIZEAN
--- NOTE | 2025-01-18 12:57 | CM ---
Met with patient at bedside
Phamacy verified: [facility] @ [phone] [facility]
IMM form explained; form signed @ [phone]
Patient and live in a one story home; 1 step to enter; bath has walk-in shower with built in seat
PLOF: patient reported she is independent with ambulation and ADLs; drives
DME: [employer]
NO SNF utilization history; home health services 7 yrs ago
will transport home
Plan: Discharge to home today; no needs
== END 2025-01-18 14:30 | disposition home or self-care (01) | DRG 123 ==
LOC: 4 WEST ACU 22:22
PROVIDERS: ADMITTING PHYSICIAN Hospitalist; ATTENDING PHYSICIAN Internal Medicine; CONSULT PHYSICIAN Psychiatry & Neurology Neurology; CONSULT PHYSICIAN Student in an Organized Health Care Education/Training Program; EMERGENCY PHYSICIAN Student in an Organized Health Care Education/Training Program; FAMILY PHYSICIAN Internal Medicine
DX: H53.2 Diplopia (principal); R17 Unspecified jaundice; G45.9 Transient cerebral ischemic attack, unspecified; I16.1 Hypertensive emergency; C90.00 Multiple myeloma not having achieved remission; G35 Multiple sclerosis; H55.09 Other forms of nystagmus; E80.4 Gilbert syndrome; D72.819 Decreased white blood cell count, unspecified; D72.821 Monocytosis (symptomatic); G70.9 Myoneural disorder, unspecified; J45.909 Unspecified asthma, uncomplicated; Z82.3 Family history of stroke; Z91.041 Radiographic dye allergy status; Z88.5 Allergy status to narcotic agent; Z88.8 Allergy status to other drugs, medicaments and biological substances; Z88.1 Allergy status to other antibiotic agents; F41.9 Anxiety disorder, unspecified; F32.A Depression, unspecified; Z79.899 Other long term (current) drug therapy; I10 Essential (primary) hypertension; E78.5 Hyperlipidemia, unspecified; G90.A Postural orthostatic tachycardia syndrome [POTS]; K21.9 Gastro-esophageal reflux disease without esophagitis; K58.9 Irritable bowel syndrome, unspecified
CPT/HCPCS: 70450; 70551; 80048; 80053; 80061; 82248; 83036; 83615; 84443; 85025; 85027; 85045; 85652; 86140; 93005; 99285

== ENCOUNTER 2025-03-26 12:07 | Day surgery (SDC) | payer MEDICARE, BC, SELFPAY ==
--- NOTE | 2025-03-26 13:15 | ITS.CL.IMPLP ---
Distribution Collection Operator - Implant Loop
Implant Loop
Procedure Report:
Procedure: Insertion of Loop Recorder.�
Date of the procedure: 03/26/2025
Procedure Physician: Bridgette Dorado MD [facility]
Indication: Cryptogenic stroke
Description of the procedure:
Patient was brought to the holding area after informed consent was obtained from the patient. The time-out was performed immediately before the procedure.
The left parasternal chest area was prepped and draped in sterile fashion with chlorhexidine prep x 3 times. Lidocaine 1% was injected subcutaneously for local anesthesia. The loop recorder was tunneled and then injected into the subcutaneous
tissue. The tunneling tool was removed leaving the loop recorder in place. The dermis was closed with 4-0 monocryl and steristrips and a pressure Tegaderm dressing was placed. There were no immediate complications.
Post procedure, the device was interrogated and showed good detectable P and R waves.
There were no immediate complications.
Device:
LINQII; Model: LNQ22; Serial #:[id number]
R wave amplitude: 0.36 mV
Final Programming:
��������������� Tachycardia Detection: >182 bpm for 16 beats
��������������� Bradycardia Detection: 30 bpm for 12 beats, Asystole for 5 seconds.
��������������� Atrial fibrillation detection: On with > 10 min duration
Conclusion:
Successful insertion of loop recorder.
Recommendation:
Routine post-insert loop care.
== END 2025-03-26 13:31 | disposition home or self-care (01) ==
LOC: CATH 12:07
PROVIDERS: ATTENDING PHYSICIAN Internal Medicine Cardiovascular Disease; FAMILY PHYSICIAN Internal Medicine; REFERRING PHYSICIAN Student in an Organized Health Care Education/Training Program
DX: Z09 Encounter for follow-up examination after completed treatment for conditions other than malignant neoplasm (principal); Z86.73 Personal history of transient ischemic attack (TIA), and cerebral infarction without residual deficits; R03.0 Elevated blood-pressure reading, without diagnosis of hypertension; G35 Multiple sclerosis
CPT/HCPCS: 33285; C1764

== ENCOUNTER → 2025-05-06 12:57 | Outpatient (REF) | payer MEDICARE, BC, SELFPAY | LOC: RCS 12:57 | PROVIDERS: ATTENDING PHYSICIAN Student in an Organized Health Care Education/Training Program; FAMILY PHYSICIAN Internal Medicine | DX: G45.9 Transient cerebral ischemic attack, unspecified (principal) | CPT/HCPCS: 93306 ==

== ENCOUNTER → 2025-05-22 13:01 | Outpatient (REF) | payer MEDICARE, BC, SELFPAY | LOC: HWWDC 13:01 | PROVIDERS: ATTENDING PHYSICIAN Obstetrics & Gynecology Gynecology; FAMILY PHYSICIAN Internal Medicine | DX: Z12.31 Encounter for screening mammogram for malignant neoplasm of breast (principal) | CPT/HCPCS: 77063; 77067 ==

== ENCOUNTER → 2025-06-04 10:17 | Outpatient (REF) | payer MEDICARE, BC, SELFPAY | LOC: WDC 10:17 | PROVIDERS: ATTENDING PHYSICIAN Obstetrics & Gynecology Gynecology; FAMILY PHYSICIAN Internal Medicine | DX: R92.8 Other abnormal and inconclusive findings on diagnostic imaging of breast (principal) | CPT/HCPCS: 76642 ==